=== PATIENT | male | born 1930 | race Caucasian/White ===

== ENCOUNTER 2017-08-16 09:26 | Inpatient (IN) | payer MEDICARE, OTHER ==
[~2017-08-16] VITALS: Ht 165.1 cm; Wt 61.4 kg
[~2017-08-16 09:26] MED LIST: ASPI-1265 PO; CARV3.12 PO; CLOP75TA33 PO; DIGO250T77 PO; DORZ10DR18 OP; FURO-150 PO; LISI-604 PO; METF500T PO; NITR0.4T SL; OPTIVITE PO; POTA20TA19 PO; SIMV20TA5 PO; TAMS0.4C32 PO; TRAV5DRO5 OP
[2017-08-16] MEDS ORDERED: normal saline 1000ml 1,000 ML IV SCH ×2 (10:35→15:09)
[2017-08-16 10:40] LABS: BASOPHILS % (AUTO) 0.1 % (0-1); EOSINOPHILS # (AUTO) 0.1 X10'3 (0-0.9); EOSINOPHILS % (AUTO) 1.2 % (0-6); HEMATOCRIT 39.5 % (42.0-52.0); LYMPHOCYTES % (AUTO) 10.2 % (21-51); MEAN CORPUSCULAR HEMOGLOBIN 29.8 PG (27.0-31.0); MEAN CORPUSCULAR HGB CONC 32.9 % (33.0-36.5); MEAN CORPUSCULAR VOLUME 90.5 FL (78-98); MEAN PLATELET VOLUME 10.4 FL (7.4-10.4); MONOCYTES # (AUTO) 0.6 X10'3 (0-0.9); MONOCYTES % (AUTO) 6.5 % (2-12); NEUTROPHILS # (AUTO) 7.9 X10'3 (1.8-7.7); PLATELET COUNT 216 X10'3 (140-440); RED BLOOD COUNT 4.36 X10'6 (4.70-6.10); RED CELL DISTRIBUTION WIDTH 16.9 % (11.5-14.5); WHITE BLOOD COUNT 9.7 X10'3 (4.5-11.0)
[2017-08-16 10:54] LABS: ANION GAP 23 (8-16); BLOOD UREA NITROGEN 148 MG/DL (7-18); BUN/CREATININE RATIO 40.9 (5.4-32.0); CALCIUM 9.7 MG/DL (8.5-10.1); CHLORIDE 104 MMOL/L (99-107); CREATININE 3.62 MG/DL (0.60-1.10); GLUCOSE 123 MG/DL (70-104); POTASSIUM 5.8 MMOL/L (3.5-5.1); SODIUM 143 MMOL/L (135-145); TOTAL CARBON DIOXIDE 15.6 MMOL/L (24-32); eGFR 16 ML/MIN
[2017-08-16 10:55] LABS: ALANINE AMINOTRANSFERASE 17 U/L (12-78); ALBUMIN 3.7 G/DL (3.4-5.0); ALBUMIN/GLOBULIN RATIO 0.9 (1.1-1.5); ALKALINE PHOSPHATASE 62 IU/L (46-116); ASPARTATE AMINO TRANSFERASE 17 U/L (10-37); BILIRUBIN,TOTAL 0.4 MG/DL (0.1-1.0); TOTAL PROTEIN 7.9 G/DL (6.4-8.2)
[2017-08-16 11:04] LABS: INR 1.1 INR; PARTIAL THROMBOPLASTIN TIME 23 SECONDS (22-32); PROTHROMBIN TIME 10.9 SECONDS (9.0-12.0)
[2017-08-16] MEDS ORDERED: normal saline 1000ml 1,000 ML IV ONE ×2 (11:40)
[2017-08-16] MEDS ORDERED: magnesium 2GM in 50ml NS 50 ML IV PRN (15:10)
[2017-08-16] MEDS ORDERED: magnesium hydroxide 30ml (MOM) UD suspension PO PRN (15:10)
[2017-08-16] MEDS ORDERED: mag hydrox/Alum hydrox/simeth 30ml oral suspension PO PRN (15:10)
[2017-08-16] MEDS ORDERED: magnesium 4gm in 100ml NS 100 ML IV PRN (15:10)
[2017-08-16] MEDS ORDERED: acetaminophen 325mg tablet PO PRN (15:10)
[2017-08-16] MEDS ORDERED: magnesium Cl slow-release 64mg tablet PO PRN (15:10)
[2017-08-16] MEDS ORDERED: potassium Cl 20 mEq SR tablet PO PRN ×2 (15:10)
[2017-08-16] MEDS ORDERED: potassium Cl 40MEQ/NS 500ml 500 ML IV PRN ×2 (15:10)
[2017-08-16] MEDS ORDERED: nitroGLYCERIN 0.4mg SUBLingual tab SL PRN (15:15)
[2017-08-16] MEDS ORDERED: sodium polystyrene sulfonate 15gm/60ml oral suspension PO ONE ×3 (15:15→21:25)
[2017-08-16] MEDS ORDERED: albuterol 2.5 MG/3 ML nebule NEB ONE (15:15)
[2017-08-16 15:41] LABS: CLARITY,URINE CLEAR (Clear); COLOR,URINE YELLOW (Yellow); GLUCOSE, URINE NEGATIVE (Neg); KETONES,URINE NEGATIVE (Neg); LEUKOCYTE ESTERASE ,URINE NEGATIVE (Neg); NITRITES, URINE NEGATIVE (Neg); OCCULT BLOOD,URINE NEGATIVE (Neg); PROTEIN,URINE TRACE mg/dl (Neg); UROBILINOGEN,URINE 0.2 E.U/dL (0.2-1.0)
[2017-08-16 15:43] LABS: UA COLLECTION TYPE STRAIGHT CATH
[2017-08-16 15:58] LABS: MUCUS STRANDS FEW /LPF (Neg)
[2017-08-16 15:59] LABS: BACTERIA,URINE FEW /HPF (Neg); RBC,URINE 0-2 /HPF (0-2); SQUAMOUS EPITHELIAL CELL,UR NONE SEEN /LPF (FEW); WBC,URINE 0-4 /HPF (0-4)
[2017-08-16] MEDS: ondansetron/PF 4mg/2ml inj IV PRN (16:16)
[2017-08-16] MEDS: piperacillin/tazo 3.375gm/50ml 50 ML IV SCH ×2 (16:25→20:42)
[2017-08-16 19:35] LABS: ANION GAP 19 (8-16); BLOOD UREA NITROGEN 147 MG/DL (7-18); BUN/CREATININE RATIO 45.8 (5.4-32.0); CALCIUM 8.4 MG/DL (8.5-10.1); CHLORIDE 115 MMOL/L (99-107); CREATININE 3.21 MG/DL (0.60-1.10); GLUCOSE 104 MG/DL (70-104); POTASSIUM 5.5 MMOL/L (3.5-5.1); SODIUM 150 MMOL/L (135-145); TOTAL CARBON DIOXIDE 16.4 MMOL/L (24-32); eGFR 18 ML/MIN
[2017-08-16 20:00] VITALS: BP 134/51
[2017-08-16] MEDS: dorzolamide/timolol (Cosopt) ophthalmic drops 10ml bottle EACHEYE SCH (20:42)
[2017-08-16] MEDS: carVEDilol 3.125mg tablet PO SCH (20:43)
[2017-08-16] MEDS: atorvastatin 10mg tablet PO SCH (20:43)
[2017-08-16] MEDS: latanoprost 0.005% 2.5ml ophthalmic drops EACHEYE SCH (20:43)
[2017-08-16] MEDS: sodium chloride 0.45% 1,000 ML IV SCH (22:03)
[2017-08-17] VITALS (8 sets, daily range): BP systolic 74–107; BP diastolic 37–65
[2017-08-17] MEDS: piperacillin/tazo 3.375gm/50ml 50 ML IV SCH ×4 (03:10→20:38)
[2017-08-17 03:48] LABS: BASOPHILS % (AUTO) 0 % (0-1); EOSINOPHILS # (AUTO) 0.1 X10'3 (0-0.9); EOSINOPHILS % (AUTO) 1.1 % (0-6); HEMATOCRIT 29.2 % (42.0-52.0); HEMOGLOBIN 9.5 g/dl (14.0-17.9); LYMPHOCYTES % (AUTO) 10.3 % (21-51); MEAN CORPUSCULAR HEMOGLOBIN 29.6 PG (27.0-31.0); MEAN CORPUSCULAR HGB CONC 32.6 % (33.0-36.5); MEAN CORPUSCULAR VOLUME 90.8 FL (78-98); MEAN PLATELET VOLUME 10.5 FL (7.4-10.4); MONOCYTES # (AUTO) 0.7 X10'3 (0-0.9); MONOCYTES % (AUTO) 7.6 % (2-12); NEUTROPHILS # (AUTO) 7.6 X10'3 (1.8-7.7); PLATELET COUNT 183 X10'3 (140-440); RED BLOOD COUNT 3.21 X10'6 (4.70-6.10); RED CELL DISTRIBUTION WIDTH 16.9 % (11.5-14.5); WHITE BLOOD COUNT 9.4 X10'3 (4.5-11.0)
[2017-08-17 04:13] LABS: ALANINE AMINOTRANSFERASE 18 U/L (12-78); ALBUMIN 2.8 G/DL (3.4-5.0); ALBUMIN/GLOBULIN RATIO 0.9 (1.1-1.5); ALKALINE PHOSPHATASE 38 IU/L (46-116); ANION GAP 18 (8-16); ASPARTATE AMINO TRANSFERASE 18 U/L (10-37); BILIRUBIN,TOTAL 0.4 MG/DL (0.1-1.0); BLOOD UREA NITROGEN 169 MG/DL (7-18); BUN/CREATININE RATIO 51.2 (5.4-32.0); CALCIUM 8.4 MG/DL (8.5-10.1); CHLORIDE 118 MMOL/L (99-107); GLUCOSE 116 MG/DL (70-104); POTASSIUM 4.9 MMOL/L (3.5-5.1); SODIUM 153 MMOL/L (135-145); TOTAL CARBON DIOXIDE 17.3 MMOL/L (24-32); eGFR 18 ML/MIN
[2017-08-17] MEDS ORDERED: normal saline 250ml IV soln 250 ML IV ONE (06:40)
[2017-08-17] MEDS: sodium chloride 0.45% 1,000 ML IV SCH ×4 (06:59→21:33)
[2017-08-17] MEDS: carVEDilol 3.125mg tablet PO SCH ×2 (07:29→20:00)
[2017-08-17] MEDS: tamsulosin 0.4mg capsule PO SCH (07:36)
[2017-08-17] MEDS: beta-carotene(A) w/C & E + minerals tab PO SCH (07:36)
[2017-08-17] MEDS: dorzolamide/timolol (Cosopt) ophthalmic drops 10ml bottle EACHEYE SCH ×2 (07:51→20:38)
[2017-08-17] MEDS: enoxaparin 30mg/0.3ml syringe SUBCUT SCH (08:00)
[2017-08-17] MEDS: clopidogrel 75mg tablet PO SCH (08:00)
[2017-08-17] MEDS: aspirin 81mg tab.chew PO SCH (08:00)
[2017-08-17] MEDS: ondansetron/PF 4mg/2ml inj IV PRN (18:53)
[2017-08-17] MEDS: latanoprost 0.005% 2.5ml ophthalmic drops EACHEYE SCH (20:40)
[2017-08-17] MEDS: atorvastatin 10mg tablet PO SCH (20:40)
[2017-08-17] MEDS ORDERED: normal saline 500ml IV soln 1,000 ML IV ONE (21:40)
[2017-08-18] VITALS: BP 90/38
[2017-08-18] MEDS: piperacillin/tazo 3.375gm/50ml 50 ML IV SCH ×2 (02:54→07:09)
[2017-08-18 05:22] LABS: BASOPHILS % (AUTO) 0.1 % (0-1); EOSINOPHILS % (AUTO) 0 % (0-6); HEMATOCRIT 27.8 % (42.0-52.0); HEMOGLOBIN 9.1 g/dl (14.0-17.9); LYMPHOCYTES # (AUTO) 0.9 X10'3 (1.1-4.8); LYMPHOCYTES % (AUTO) 6.3 % (21-51); MEAN CORPUSCULAR HEMOGLOBIN 29.8 PG (27.0-31.0); MEAN CORPUSCULAR HGB CONC 32.6 % (33.0-36.5); MEAN CORPUSCULAR VOLUME 91.3 FL (78-98); MEAN PLATELET VOLUME 10.8 FL (7.4-10.4); MONOCYTES # (AUTO) 0.8 X10'3 (0-0.9); NEUTROPHILS # (AUTO) 12.2 X10'3 (1.8-7.7); NEUTROPHILS % (AUTO) 87.6 % (42-75); PLATELET COUNT 160 X10'3 (140-440); RED BLOOD COUNT 3.04 X10'6 (4.70-6.10); RED CELL DISTRIBUTION WIDTH 17.4 % (11.5-14.5)
[2017-08-18 05:53] LABS: ALANINE AMINOTRANSFERASE 20 U/L (12-78); ALBUMIN 2.7 G/DL (3.4-5.0); ALBUMIN/GLOBULIN RATIO 0.9 (1.1-1.5); ALKALINE PHOSPHATASE 38 IU/L (46-116); ANION GAP 17 (8-16); ASPARTATE AMINO TRANSFERASE 21 U/L (10-37); BILIRUBIN,TOTAL 0.4 MG/DL (0.1-1.0); BLOOD UREA NITROGEN 177 MG/DL (7-18); BUN/CREATININE RATIO 57.8 (5.4-32.0); CALCIUM 8.4 MG/DL (8.5-10.1); CHLORIDE 123 MMOL/L (99-107); CREATININE 3.06 MG/DL (0.60-1.10); GLUCOSE 149 MG/DL (70-104); MAGNESIUM 2.9 MG/DL (1.5-2.4); POTASSIUM 3.2 MMOL/L (3.5-5.1); TOTAL CARBON DIOXIDE 18.1 MMOL/L (24-32); TOTAL PROTEIN 5.7 G/DL (6.4-8.2); eGFR 19 ML/MIN
[2017-08-18 06:08] LABS: SODIUM 158 MMOL/L (135-145)
[2017-08-18] MEDS: aspirin 81mg tab.chew PO SCH (06:39)
[2017-08-18] MEDS: clopidogrel 75mg tablet PO SCH (06:40)
[2017-08-18] MEDS: carVEDilol 3.125mg tablet PO SCH (06:40)
[2017-08-18] MEDS: enoxaparin 30mg/0.3ml syringe SUBCUT SCH (06:40)
[2017-08-18] MEDS: tamsulosin 0.4mg capsule PO SCH (07:09)
[2017-08-18] MEDS: dorzolamide/timolol (Cosopt) ophthalmic drops 10ml bottle EACHEYE SCH (07:09)
[2017-08-18] MEDS: sodium chloride 0.45% 1,000 ML IV SCH (07:18)
[2017-08-18 07:24] VITALS: BP 98/36
[2017-08-18] MEDS: beta-carotene(A) w/C & E + minerals tab PO SCH (08:00)
[2017-08-18] MEDS ORDERED: LORazepam 2 mg/ml vial IV PRN (11:25)
[2017-08-18] MEDS ORDERED: DIGO125T78 PO (12:03)
[2017-08-18] MEDS ORDERED: LOSA50TA37 PO (12:10)
[2017-08-18] MEDS ORDERED: LISI10TA4 PO (12:10)
[2017-08-18] MEDS ORDERED: FURO-149 PO (12:10)
[2017-08-18] MEDS ORDERED: SPIR50TA3 PO (12:10)
[2017-08-18 13:56] LABS: HEMOGLOBIN A1C 6.3 % (4.5-6.2)
== END 2017-08-18 16:05 | disposition expired | DRG 682 ==
LOC: ER 09:26 → ED HOLD 15:09 → SUR 3N 18:16 → UNDODISIN 08-18 13:50
PROVIDERS: ADMIT Internal Medicine; ATTEND Internal Medicine
DX: N17.9 Acute kidney failure, unspecified (principal); E43 Unspecified severe protein-calorie malnutrition; E87.2 Acidosis; E87.5 Hyperkalemia; D64.9 Anemia, unspecified; I48.91 Unspecified atrial fibrillation; I50.9 Heart failure, unspecified; R64 Cachexia; E86.0 Dehydration; F03.90 Unspecified dementia, unspecified severity, without behavioral disturbance, psychotic disturbance, mood disturbance, and anxiety; E87.6 Hypokalemia; H40.9 Unspecified glaucoma; H91.90 Unspecified hearing loss, unspecified ear; I25.10 Atherosclerotic heart disease of native coronary artery without angina pectoris; R09.02 Hypoxemia; Z51.5 Encounter for palliative care; Z66 Do not resuscitate; I25.2 Old myocardial infarction; Z68.22 Body mass index [BMI] 22.0-22.9, adult; Z95.1 Presence of aortocoronary bypass graft; Z79.899 Other long term (current) drug therapy; Z79.84 Long term (current) use of oral hypoglycemic drugs; Z79.02 Long term (current) use of antithrombotics/antiplatelets; Z79.82 Long term (current) use of aspirin; Z87.11 Personal history of peptic ulcer disease
CPT/HCPCS: 36415; 70450; 71010; 80048; 80053; 80162; 81001; 82140; 83036; 83605; 83735; 83880; 84132; 84145; 84484; 85025; 85610; 85730; 87040; 87070; 93005; 93978; 96360; 96361; 99291; A4353; A4357; A6212; A6213; A6449; J2405; J2543; J7030